=== PATIENT | female | born 1935 | race Caucasian/White ===

== ENCOUNTER 2017-10-15 07:30 | Emergency (ER) | payer OTHER ==
[~2017-10-15] VITALS: Ht 165.1 cm; Wt 72.6 kg
[~2017-10-15 07:30] MED LIST: AMLODIPINE BESY10 M1 PO; GLIMEPIRIDE1 M1 PO; LOSARTAN-HCTZ1 EAC2 PO; OMEGA-3 ACID ETH1 GM PO; TRAMADOL HCL50 M1 PO; XANAX0.25 M1 PO
--- NOTE | 2017-10-15 08:04 | ED GI/GU/ABDOMINAL COMPLAINT ---
History of Present Illness General Chief Complaint: General Adult Stated Complaint: BIBA FOR +N Source: patient, old records, EMS Exam Limitations: no limitations Vital Signs & Intake/Output Vital Signs & Intake/Output Vital Signs Date Time Temp Pulse Resp B/P B/P Pulse O2 O2 Flow FiO2 Mean Ox Delivery Rate 10/15 938 97.6 90 15 133/76 96 Room Air Room Air 10/15 0736 97 Room Air 10/15 0731 98.6 91 16 143/69 96 Room Air Allergies Coded Allergies: No Known Drug Allergies (NKDA 01/21/17) Reconcile Medications Alprazolam (Xanax) 0.25 MG TABLET 1 TAB PO BIDP PRN ANXIETY Amlodipine Besylate 10 MG TABLET 1 TAB PO DAILY HTN (Reported) Glimepiride 1 MG TABLET 1 TAB PO DAILY DM (Reported) Losartan/Hydrochlorothiazide (Losartan-Hctz 100-25 MG Tab) 100 MG-25 MG TABLET 1 TAB PO DAILY HTN (Reported) Abernathy-3 Acid Ethyl Esters 1 GRAM CAPSULE 2 CAP PO BID SUPPLEMENT (Reported) Tramadol HCl 50 MG TABLET 1 TAB PO TIDPRN ARTHRITIS (Reported) Triage Note: 82 Y/O FEMALE BIBA FROM [facility] FOR EVAL OF NAUSEA SINCE YESTERDAY. PT ARRIVES A/O X 4, SPEAKING CLEARLY WITH NO DISTRESS NOTED. PT STATES SHE FELT NAUSEOUS LAST WEEK BUT IT SUBSIDED ON ITS OWN. STARTED TO FEEL SICK YESTERDAY WITH NAUSEA. DENIES VOMITING. +DIARRHEA X 1 TODAY. REPORTS NO APPETITE. PT DENIES URINARY SYMPTOMS. DENIES FEVERS. DENIES RECENT SICK CONTACTS AWAITING EVAL Triage Nurses Notes Reviewed? yes LMP (ages 10-50): post menopausal ? n Is pt currently ? No Onset: Last week Duration: day(s):, changing over time, continues in ED Timing: recent history Quality/Severity: mild, vomiting, Nausea Radiation: no radiation Activities at Onset: rest Prior Abdominal Problems: none Past Sexual History: Unobtainable at this time Modifying Factors: Worsens With: eating. Associated Symptoms: abdominal pain, loss of appetite, nausea/vomiting HPI: One week prior to admission patient complained of nausea and decreased appetite that resolved after a couple of days. 1 day prior to admission she complained of recurrent nausea vomiting with episode of loose watery stool anorexia nonproductive cough and malaise. She denies fever chills chest pain shortness of breath headache dysuria rash bleeding. Past History Travel History Traveled to [place] past 21 day No Medical History Any Pertinent Medical History? see below for history Neurological: NONE EENT: NONE Cardiovascular: hypertension Respiratory: NONE Gastrointestinal: NONE Hepatic: NONE Renal: NONE Musculoskeletal: osteoarthritis Psychiatric: NONE Endocrine: diabetes Blood Disorders: NONE Cancer(s): NONE PUBLIC HEALTH INSPECTOR/Reproductive: NONE Surgical History Surgical History: non-contributory Psychosocial History What is your primary language Guyanese Tobacco Use: Never used Family History Hx Contributory? No Review of Systems Review of Systems Constitutional: Reports: see HPI, malaise. EENTM: Reports: no symptoms. Respiratory: Reports: see HPI, cough. Denies: short of breath, sputum production. Cardiovascular: Reports: no symptoms. GI: Reports: see HPI, diarrhea, nausea, vomiting. Genitourinary: Reports: no symptoms. Musculoskeletal: Reports: no symptoms. Skin: Reports: no symptoms. Neurological/Psychological: Reports: no symptoms. Hematologic/Endocrine: Reports: no symptoms. Immunologic/Allergic: Reports: no symptoms. All Other Systems: Reviewed and Negative Physical Exam Physical Exam General Appearance: well developed/nourished, alert, awake, anxious, mild distress, obese Head: atraumatic, normal appearance Eyes: Bilateral: normal appearance, PERRL, EOMI, normal inspection. Ears, Nose, Throat, Mouth: hearing grossly normal, dry mucous membranes Neck: normal inspection, supple, full range of motion, normal alignment, no midline tenderness Respiratory: normal breath sounds, chest non-tender, no respiratory distress, quiet respiration, lungs clear Cardiovascular: regular rate/rhythm, normal peripheral pulses, norml femoral pulses equa Peripheral Pulses: 4+ carotid (R), 4+ carotid (L) Gastrointestinal: normal bowel sounds, soft, non-tender, no organomegaly Back: normal inspection, normal range of motion, no vertebral tenderness Extremities: normal range of motion, no ligament instability Neurologic/Psych: no motor/sensory deficits, awake, alert, oriented x 3, normal gait, normal mood/affect, 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 No Sepsis Present: No Sepsis Focused Exam Completed? No Progress Differential Diagnosis: biliary colic, gastritis, pancreatitis, UTI/pyelo Plan of Care: Orders Procedure Date/time Status Add-on Test (ER Only) 10/16 1107 Active Add-on Test (ER Only) 10/15 07 Active MAGNESIUM 10/16 739 Complete LIPASE 10/16 739 Complete URINALYSIS 10/15 736 Complete COMPREHENSIVE METABOLIC PANEL 10/15 736 Complete CBC WITHOUT DIFFERENTIAL 10/15 736 Complete Current Medications Sig/Caitlin Start time Last Medication Dose Stop Time Status Admin Ceftriaxone Sodium 1,000 MG ONCE ONE 10/15 111 UNVr (Rocephin) 10/15 111 Laboratory Tests 10/15/17 0938: Urinalysis LIGHT H, Urine Color STRAW, Urine Clarity HAZY H, Urine pH 6.0, Ur Specific [place] 1.015, Urine Protein NEG, Urine Ketones NEG, Urine Nitrite NEG, Urine Bilirubin NEG, Urine Urobilinogen 0.2, Ur Leukocyte Esterase MOD H, Ur Microscopic SEDIMENT EXAMINED, Urine RBC 1-3, Urine WBC 15-25 H, Ur Epithelial Cells MOD H, Urine Bacteria FEW H, Hyaline Casts RARE H, Urine Hemoglobin NEG , Urine Glucose NEG 10/15/17 07: Anion Gap 14, Estimated GFR 20 L, BUN/Creatinine Ratio 18.3, Glucose 178 H, Calcium 9.5, Magnesium 1.8, Total Bilirubin 0.7, AST 23, ALT 40, Alkaline Phosphatase 86, Total Protein 7.5, Albumin 4.2, Globulin 3.3, Albumin/Globulin Ratio 1.3, Lipase 220, CBC w Diff NO MAN DIFF REQ, RBC 4.26, MCV 87.2, MCH 29.2, MCHC 33.5, RDW 13.3, MPV 7.0 L, Gran % 68.3, Lymphocytes % 22.6, Monocytes % 7.3, Eosinophils % 1.4, Basophils % 0.4, Absolute Granulocytes 5.4, Absolute Lymphocytes 1.8, Absolute Monocytes 0.6, Absolute Eosinophils 0.1, Absolute Basophils 0 Diagnostic Imaging: Viewed by Me: Radiology Read. Discussed w/RAD: Radiology Read. CXR Impression: 1. No evidence of focal pneumonia or bowel obstruction or perforation. 2. Minimal linear subsegmental atelectasis in left lung base. 3. Thoracolumbar scoliosis with multilevel degenerative changes in the spine. Initial ED EKG: none Departure Departure Time of Disposition: 1107 Disposition: HOME OR SELF CARE Condition: Stable Clinical Impression Primary Impression: UTI (urinary tract infection) Secondary Impressions: Chronic renal insufficiency, Nausea, vomiting, and diarrhea Referrals: Justa Simental MD (PCP/Family) Additional Instructions: Clear liquids for 12-24 hours until better Departure Forms: Customer Survey General Discharge Information
[2017-10-15 08:08] LABS: ABSOLUTE BASOPHIL COUNT 0 /CUMM (0.0-0.2); ABSOLUTE EOSINOPHIL COUNT 0.1 /CUMM (0.0-0.7); ABSOLUTE GRANULOCYTE CT 5.4 /CUMM (1.4-6.5); ABSOLUTE LYMPH COUNT 1.8 /CUMM (1.2-3.4); ABSOLUTE MONOCYTE COUNT 0.6 /CUMM (0.10-0.60); BASOPHIL % 0.4 % (0.0-2.0); EOSINOPHIL % 1.4 % (0-5); GRANULOCYTE % 68.3 % (42.2-75.2); HEMATOCRIT 37.2 % (37-47); MEAN CORPUSCULAR HGB 29.2 PG (27.0-31.0); MEAN CORPUSCULAR HGB CONC 33.5 G/DL (33.0-37.0); MEAN CORPUSCULAR VOLUME 87.2 FL (81.0-99.0); PLATELET COUNT 229 /CUMM (130-400); RBC DISTRIBUTION WIDTH 13.3 % (11.5-14.5); RED BLOOD CELL CT 4.26 /CUMM (4.20-5.40); WHITE BLOOD CELL COUNT 7.9 /CUMM (4.8-10.8)
--- NOTE | 2017-10-15 10:29 | RADIOLOGY REPORT ---
EXAMINATION: XR ABDOMEN WITH PA CHEST CLINICAL INDICATION: Cough. Nausea, vomiting, and diarrhea for one week. Presumptive diagnosis of ileus, pneumonia. COMPARISON: Renal ultrasound from 09/28/2016. TECHNIQUE: Frontal view of the chest and supine and upright views of the abdomen. FINDINGS: Chest x-ray: The cardiomediastinal silhouette is enlarged. Calcification and mild ectasia of the aorta are seen. Minimal linear subsegmental atelectasis is seen in the left lung base. Lungs are otherwise unremarkable. No focal consolidation, effusion or pneumothorax is seen. There is a convex right thoracolumbar scoliosis and diffuse osteopenia and multilevel moderate vertebral spondylosis in the mid and lower thoracic spine. Two-view abdomen: Normal bowel gas pattern with no evidence of obstruction or perforation. Arteriovascular calcifications is seen in the upper abdomen. S-shaped thoracolumbar scoliosis is noted with prominent degenerative changes in the spine. Moderate degenerative change of the right hip joint and severe degenerative change in the left hip joint are also partially included. IMPRESSION: 1. No evidence of focal pneumonia or bowel obstruction or perforation. 2. Minimal linear subsegmental atelectasis in left lung base. 3. Thoracolumbar scoliosis with multilevel degenerative changes in the spine.
[2017-10-15] MEDS ORDERED: KEFLEX500 M1 PO (11:11)
[2017-10-15] MEDS ORDERED: ZOFRAN ODT4 M1 SL (11:11)
[2017-10-15] MEDS ORDERED: IMODIUM A-D2 M1 PO (11:11)
[2017-10-15 11:23] VITALS: BP 141/66
== END 2017-10-15 13:25 ==
LOC: ERH 07:30
PROVIDERS: Emergency Medicine
DX: N39.0 Urinary tract infection, site not specified (principal); N18.9 Chronic kidney disease, unspecified; R11.2 Nausea with vomiting, unspecified; R19.7 Diarrhea, unspecified
CPT/HCPCS: 74022; 81001; 87086; 96361; 96374; 96375; J0696; J2405